=== PATIENT | male | born 1965 | race African-American/Black ===

== ENCOUNTER 2022-11-21 07:26 | Outpatient (CLI) | payer OTHER, SELFPAY | END 2022-11-21 07:27 | disposition home or self-care (01) | LOC: ANHAUDIO 07:28 | PROVIDERS: PCP Internal Medicine Infectious Disease; Visit Provider Internal Medicine Infectious Disease | DX: H91.92 Unspecified hearing loss, left ear (principal) | CPT/HCPCS: 99199 ==